=== PATIENT | male | born 1935 | race American Indian/Alaskan Native ===

== ENCOUNTER 2017-03-13 07:32 | Day surgery (SDC) | payer MEDICARE ==
[2017-03-13] MEDS ORDERED: NACL 0.45% 1000 ML 1,000 ML IV SCH (09:00)
[2017-03-13 09:25] LABS: White Blood Count 2.5 K/mm3 (4.5-11.0)
[2017-03-13 09:26] LABS: Hematocrit 38.9 % (35.5-45.6); Hemoglobin 12.9 gm/dl (11.8-15.2); Mean Corpuscular HGB Conc 33 % (32-34); Mean Corpuscular Hemoglobin 33 pg (28-32); Mean Corpuscular Volume 99 fl (84-94); Red Blood Count 3.93 M/mm3 (3.65-5.03); Red Cell Distribution Width 15.3 % (13.2-15.2)
[2017-03-13 09:29] LABS: Platelet Count 55 K/mm3 (140-440)
[2017-03-13 09:36] LABS: INR 1.25 (0.87-1.13)
[2017-03-13 09:37] LABS: Partial Thromboplastin Time 38.1 Sec. (24.2-36.6)
[2017-03-13] MEDS ORDERED: NACL 0.9% 1,000 ML, VANCOMYCIN VIAL 1,000 MG IR ONE (10:00)
[2017-03-13 10:09] LABS: Anisocytosis 1+; Blastocytes % (Manual) 0 %; Elliptocytes 1+; Helmet Cells Few; Ovalocytes 1+; Target Cells Rare
[2017-03-13 10:10] LABS: Acanthocytes Few; Diff Status Complete; Platelet Estimate Appears Decreased; Polychromasia Rare
[2017-03-13 10:17] LABS: Calcium 9.2 mg/dL (8.4-10.2); Chloride 98.6 mmol/L (98-107)
[2017-03-13 11:01] LABS: Potassium 5.3 mmol/L (3.6-5.0)
[2017-03-13] MEDS ORDERED: D50W (25GM) Syringe IV ONE (12:00)
[2017-03-13] MEDS ORDERED: XYLOCAINE 1% 20 mL ONE (13:14)
[2017-03-13] MEDS ORDERED: NACL 0.9% 500 ML IR ONE ×2 (13:14→14:41)
[2017-03-13] MEDS ORDERED: ANCEF/STERILE WATER 2 GM/20 ML 2 GM/20 ML SYRINGE IV ONE (13:14)
[2017-03-13] MEDS ORDERED: MARCAINE 0.5% 60 ML INFILTRATI ONE (13:14)
[2017-03-13] MEDS ORDERED: VERSED ONE ×2 (13:16→14:32)
[2017-03-13] MEDS ORDERED: SUBLIMAZE ONE ×2 (13:16→14:32)
[2017-03-13 16:37] VITALS: BP 121/61
== END 2017-03-13 17:00 | disposition home or self-care (01) ==
LOC: CATHLABREC 07:32
PROVIDERS: ATTEND Internal Medicine Cardiovascular Disease
DX: Z45.02 Encounter for adjustment and management of automatic implantable cardiac defibrillator (principal); I13.2 Hypertensive heart and chronic kidney disease with heart failure and with stage 5 chronic kidney disease, or end stage renal disease; I50.22 Chronic systolic (congestive) heart failure; I42.9 Cardiomyopathy, unspecified; I34.0 Nonrheumatic mitral (valve) insufficiency; N18.6 End stage renal disease; E78.5 Hyperlipidemia, unspecified; Z86.73 Personal history of transient ischemic attack (TIA), and cerebral infarction without residual deficits; Z99.2 Dependence on renal dialysis
CPT/HCPCS: 33262; 36415; 80048; 82962; 84132; 85007; 85025; 85610; 85730; 93005; 93010; 96374; C1722; J0690; J2250; J3010; J3370

== ENCOUNTER 2017-04-14 08:52 | Emergency (ER) | payer MEDICARE ==
[2017-04-14 10:40] LABS: Hematocrit 36.7 % (35.5-45.6); Hemoglobin 11.9 gm/dl (11.8-15.2); Mean Corpuscular HGB Conc 33 % (32-34); Mean Corpuscular Hemoglobin 33 pg (28-32); Mean Corpuscular Volume 101 fl (84-94); Red Blood Count 3.64 M/mm3 (3.65-5.03); Red Cell Distribution Width 16.8 % (13.2-15.2); White Blood Count 3.2 K/mm3 (4.5-11.0)
[2017-04-14 10:42] LABS: Platelet Count 58 K/mm3 (140-440)
[2017-04-14 10:51] LABS: Albumin 3.4 g/dL (3.9-5); Albumin/Globulin Ratio 1.1 %; Alkaline Phosphatase 61 units/L (35-129); Anion Gap 21 mmol/L; BUN/Creatinine Ratio 4; Blood Urea Nitrogen 24 mg/dL (9-20); Calcium 8.9 mg/dL (8.4-10.2); Carbon Dioxide 24 mmol/L (22-30); Glucose 89 mg/dL (75-100); Lipase 13 units/L (13-60); Sodium 142 mmol/L (137-145); Total Protein 6.4 g/dL (6.3-8.2)
[2017-04-14 10:58] LABS: Alanine Aminotransferase < 5 units/L (7-56)
[2017-04-14 11:12] LABS: Creatine Kinase MB 2.3 ng/mL (0.0-4.0)
--- NOTE | 2017-04-14 11:14 | Emergency Department Report ---
ED General Adult HPI - General Chief complaint: Weakness Stated complaint: DIZZY Time Seen by Provider: 04/14/17 10:24 Source: patient, EMS Mode of arrival: Stretcher Limitations: Physical Limitation - History of Present Illness Initial comments: Patient is an 81-year-old male past medical history of hypertension and end- stage renal disease. Who presents with hypotension. Patient is a dialysis patient and he gets dialysis Friday. While he was getting dialysis they noticed that he was hypotensive and because of that he was sent to the emergency department. Patient is not having any confusion or having any chest or abdominal pain. He states that he had some of his dialysis treatment but he hasn't had all of it. Patient states he is feeling fine now. No fevers or chills Severity scale (0 -10): 0 - Related Data Home Medications Medication Instructions Recorded Confirmed Last Taken Clopidogrel [Plavix] 75 mg PO QDAY 02/25/13 03/13/17 03/10/17 75mg Vit B Comp No.3/Folic/C/Biotin 1 tab PO DAILY 02/25/13 03/13/17 03/12/17 [[facility] Rx Tablet] 1 tab Amiodarone 200 mg PO DAILY 10/03/14 03/13/17 03/12/17 200mg Flomax 1 tab PO DAILY 10/03/14 03/13/17 03/12/17 Lipitor 10 mg PO DAILY 03/13/17 03/13/17 03/12/17 10mg Loratadine [Loratadine] 10 mg PO DAILY PRN 03/13/17 03/13/17 Unknown Ondansetron [Zofran TAB] 4 mg PO Q8H PRN 03/13/17 03/13/17 Unknown Ranitidine HCl [Zantac 150 MG TAB] 150 mg PO DAILY PRN 03/13/17 03/13/17 Unknown Previous Rx's Medication Instructions Recorded Last Taken Type Carvedilol [Coreg] 3.125 mg PO BID #60 tablet 10/15/14 03/12/17 Rx 3.125mg Acetaminophen [Acetaminophen TAB] 650 mg PO Q4H PRN #30 tablet 06/10/15 Unknown Rx guaiFENesin [Robitussin] 200 mg PO Q6H PRN #8 oz 06/10/15 Unknown Rx Cephalexin [Keflex] 500 mg PO Q12HR #16 cap 03/13/17 Unknown Rx Allergies Allergy/AdvReac Type Severity Reaction Status Date / Time No Known Allergies Allergy Verified 02/25/13 07:35 ED Review of Systems ROS: Stated complaint: DIZZY Other details as noted in HPI Constitutional: denies: chills, fever Eyes: denies: eye pain, eye discharge, vision change ENT: denies: ear pain, throat pain Respiratory: denies: cough, shortness of breath, wheezing Cardiovascular: denies: chest pain, palpitations Endocrine: no symptoms reported Gastrointestinal: denies: abdominal pain, nausea, diarrhea Genitourinary: denies: urgency, dysuria Musculoskeletal: denies: back pain, joint swelling, arthralgia Skin: denies: rash, lesions Neurological: denies: headache, weakness, paresthesias Psychiatric: denies: anxiety, depression Hematological/Lymphatic: denies: easy bleeding, easy bruising ED Past Medical Hx - Past Medical History Hx Hypertension: Yes Hx Heart Attack/AMI: Yes Hx Congestive Heart Failure: Yes Hx Diabetes: Yes (NO MEDS) Hx Renal Disease: Yes (ESRD w/ HD M,W,F) Hx Asthma: No Hx HIV: No - Surgical History Hx Internal Defibrillator: Yes Hx Appendectomy: Yes Additional Surgical History: defib placement - Social History Smoking Status: Never Smoker Substance Use Type: None - Medications Home Medications: Home Medications Medication Instructions Recorded Confirmed Last Taken Type Clopidogrel [Plavix] 75 mg PO QDAY 02/25/13 03/13/17 03/10/17 History 75mg Vit B Comp No.3/Folic/C/Biotin 1 tab PO DAILY 02/25/13 03/13/17 03/12/17 History [[facility] Rx Tablet] 1 tab Amiodarone 200 mg PO DAILY 10/03/14 03/13/17 03/12/17 History 200mg Flomax 1 tab PO DAILY 10/03/14 03/13/17 03/12/17 History Carvedilol [Coreg] 3.125 mg PO BID #60 tablet 10/15/14 03/13/17 03/12/17 Rx 3.125mg Acetaminophen [Acetaminophen TAB] 650 mg PO Q4H PRN #30 tablet 06/10/15 Unknown Rx guaiFENesin [Robitussin] 200 mg PO Q6H PRN #8 oz 01/16/16 10/19/17 Unknown Rx Cephalexin [Keflex] 500 mg PO Q12HR #16 cap 03/13/17 Unknown Rx Lipitor 10 mg PO DAILY 03/13/17 03/13/17 03/12/17 History 10mg Loratadine [Loratadine] 10 mg PO DAILY PRN 03/13/17 03/13/17 Unknown History Ondansetron [Zofran TAB] 4 mg PO Q8H PRN 03/13/17 03/13/17 Unknown History Ranitidine HCl [Zantac 150 MG TAB] 150 mg PO DAILY PRN 03/13/17 03/13/17 Unknown History ED Physical Exam - General Limitations: Physical Limitation General appearance: alert, in no apparent distress - Head Head exam: Present: atraumatic, normocephalic - Eye Eye exam: Present: normal appearance - ENT ENT exam: Present: mucous membranes moist - Neck Neck exam: Present: normal inspection - Respiratory Respiratory exam: Present: normal lung sounds bilaterally. Absent: respiratory distress - Cardiovascular Cardiovascular Exam: Present: regular rate, normal rhythm. Absent: systolic murmur, diastolic murmur, rubs, gallop - GI/Abdominal GI/Abdominal exam: Present: soft, normal bowel sounds - Rectal Rectal exam: Present: deferred - Extremities Exam Extremities exam: Present: other (right AV fistula palpable thrill) - Back Exam Back exam: Present: normal inspection - Neurological Exam Neurological exam: Present: alert, oriented X3 - Psychiatric Psychiatric exam: Present: normal affect, normal mood - Skin Skin exam: Present: warm, dry, intact, normal color. Absent: rash ED Course Vital Signs 04/14/17 04/14/17 04/14/17 09:04 09:17 09:30 Temperature 98.1 F Pulse Rate 92 H Respiratory 16 Rate Blood Pressure 115/67 114/55 107/52 Blood Pressure 115/67 [Left] O2 Sat by Pulse 100 100 Oximetry 04/14/17 04/14/17 04/14/17 09:48 10:00 10:47 Temperature Pulse Rate Respiratory 16 Rate Blood Pressure 107/52 107/52 Blood Pressure [Left] O2 Sat by Pulse 100 100 100 Oximetry 04/14/17 04/14/17 04/14/17 11:00 11:30 12:00 Temperature Pulse Rate Respiratory Rate Blood Pressure 114/65 114/65 115/67 Blood Pressure [Left] O2 Sat by Pulse 100 100 97 Oximetry ED Medical Decision Making - Lab Data Result diagrams: 04/14/17 10:23 04/14/17 10:18 Lab Results 04/14/17 04/14/17 04/14/17 Range/Units 10:18 10:23 10:23 WBC 3.2 L (4.5-11.0) K/mm3 RBC 3.64 L (3.65-5.03) M/mm3 Hgb 11.9 (11.8-15.2) gm/dl Hct 36.7 (35.5-45.6) % MCV 101 H (84-94) fl MCH 33 H (28-32) pg MCHC 33 (32-34) % RDW 16.8 H (13.2-15.2) % Plt Count 58 L (140-440) K/mm3 Upson % (Auto) Cleaning Manager Add Manual Diff Complete Total Counted 100 Seg Neuts % (Manual) 65.0 (40.0-70.0) % Band Neutrophils % 0 % Lymphocytes % (Manual) 18.0 (13.4-35.0) % Reactive Lymphs % (Man) 0 % Monocytes % (Manual) 14.0 H (0.0-7.3) % Eosinophils % (Manual) 2.0 (0.0-4.3) % Basophils % (Manual) 1.0 (0.0-1.8) % Metamyelocytes % 0 % Myelocytes % 0 % Promyelocytes % 0 % Blast Cells % 0 % Nucleated RBC % Not Reportable Seg Neutrophils # Man 2.1 (1.8-7.7) K/mm3 Band Neutrophils # 0.0 K/mm3 Lymphocytes # (Manual) 0.6 L (1.2-5.4) K/mm3 Abs React Lymphs (Man) 0.0 K/mm3 Monocytes # (Manual) 0.4 (0.0-0.8) K/mm3 Eosinophils # (Manual) 0.1 (0.0-0.4) K/mm3 Basophils # (Manual) 0.0 (0.0-0.1) K/mm3 Metamyelocytes # 0.0 K/mm3 Myelocytes # 0.0 K/mm3 Promyelocytes # 0.0 K/mm3 Blast Cells # 0.0 K/mm3 WBC Morphology Not Reportable Hypersegmented Neuts Not Reportable Hyposegmented Neuts Not Reportable Hypogranular Neuts Not Reportable Smudge Cells Not Reportable Toxic Granulation Not Reportable Toxic Vacuolation Not Reportable Dohle Bodies Not Reportable Pelger-Huet Anomaly Not Reportable Shaw Rods Not Reportable Platelet Estimate Cons Clumped Platelets Not Reportable Plt Clumps, EDTA Not Reportable Large Platelets Not Reportable Giant Platelets Not Reportable Platelet Satelliting Not Reportable Plt Morphology Comment Not Reportable RBC Morphology Not Reportable Dimorphic RBCs Not Reportable Polychromasia Not Reportable Hypochromasia Not Reportable Poikilocytosis 1+ Anisocytosis 1+ Microcytosis Not Reportable Macrocytosis Not Reportable Spherocytes Not Reportable Pappenheimer Bodies Not Reportable Sickle Cells Not Reportable Target Cells Not Reportable Tear Drop Cells Not Reportable Ovalocytes Few Helmet Cells Not Reportable [place] Bodies Not Reportable [place] Rings Not Reportable Simba Cells Not Reportable Bite Cells Not Reportable Crenated Cell Not Reportable Elliptocytes Few Acanthocytes (Spur) Few Rouleaux Not Reportable Hemoglobin C Crystals Not Reportable Schistocytes Rare Malaria parasites Not Reportable Shimon Bodies Not Reportable Hem Pathologist Commnt No Sodium 142 (137-145) mmol/L Potassium 4.0 (3.6-5.0) mmol/L Chloride 101.0 (98-107) mmol/L Carbon Dioxide 24 (22-30) mmol/L Anion Gap 21 mmol/L BUN 24 H (9-20) mg/dL Creatinine 6.7 H (0.8-1.5) mg/dL Estimated GFR 10 ml/min BUN/Creatinine Ratio 4 % Glucose 89 (75-100) mg/dL Calcium 8.9 (8.4-10.2) mg/dL Total Bilirubin 1.00 (0.1-1.2) mg/dL AST 6 (5-40) units/L ALT < 5 L (7-56) units/L Alkaline Phosphatase 61 (35-129) units/L Total Creatine Kinase 44 L (55-170) units/L CK-MB (CK-2) 2.3 (0.0-4.0) ng/mL CK-MB (CK-2) Rel Index 5.2 H (0-4) Troponin T 0.232 H* (0.00-0.029) ng/mL Total Protein 6.4 (6.3-8.2) g/dL Albumin 3.4 L (3.9-5) g/dL Albumin/Globulin Ratio 1.1 % Triglycerides 65 (2-149) mg/dL Cholesterol 108 (50-199) mg/dL LDL Cholesterol Direct 56 (50-130) mg/dL HDL Cholesterol 39 L (40-59) mg/dL Cholesterol/HDL Ratio 2.76 % Lipase 13 (13-60) units/L - EKG Data -: EKG Interpreted by Me - EKG Data 04/14/17 13:17 EKG shows sinus rhythm left bundle branch block normal axis. No T wave inversion - Medical Decision Making Chief medical diagnosis: Hypotension secondary to hemodialysis Differential medical diagnosis: Hyperkalemia, hypoglycemia I will get EKG, CBC, troponin, CMP and we'll reassess Patient's blood work shows elevated troponin however within looking at his history patient has always had an elevated troponin since he had end-stage renal disease on dialysis. His troponin today is 0.2-2 which is lower than his usual which is 0.4-0.6. The patient and patient's that patient has been asymptomatic in the day and has had a normotensive blood pressure. He can go back to dialysis. Patient agrees with plan additional verbal discharge instructions were given. Critical care attestation.: If time is entered above; I have spent that time in minutes in the direct care of this critically ill patient, excluding procedure time. ED Disposition Clinical Impression: Dialysis complication Qualifiers: Encounter type: initial encounter Qualified Code(s): T82.9XXA - Unspecified complication of cardiac and vascular prosthetic device, implant and graft, initial encounter Hypotension Qualifiers: Hypotension type: hemodialysis-associated hypotension Qualified Code(s): I95.3 - Hypotension of hemodialysis Disposition: DC-01 TO HOME OR SELFCARE Is pt being admited?: No Does the pt Need Aspirin: No Condition: Stable Instructions: Hemodialysis (ED), Hypotension (ED) Referrals: MARRY PACE MD [Staff Physician] - 3-5 Days
[2017-04-14 11:20] LABS: Blastocytes % (Manual) 0 %
[2017-04-14 11:21] LABS: Acanthocytes Few; Anisocytosis 1+; Poikilocytosis 1+
[2017-04-14 11:22] LABS: Diff Status Complete; Elliptocytes Few; Ovalocytes Few; Platelet Estimate Cons; Schistocytes Rare
[2017-04-14 12:26] VITALS: BP 115/67
== END 2017-04-14 14:11 | disposition home or self-care (01) ==
LOC: ED 08:52
DX: I95.3 Hypotension of hemodialysis (principal); T82.9XXA Unspecified complication of cardiac and vascular prosthetic device, implant and graft, initial encounter; E11.22 Type 2 diabetes mellitus with diabetic chronic kidney disease; I12.0 Hypertensive chronic kidney disease with stage 5 chronic kidney disease or end stage renal disease; N18.6 End stage renal disease; I50.9 Heart failure, unspecified
CPT/HCPCS: 36415; 80053; 80061; 82550; 82553; 83690; 84484; 85007; 85025; 93005; 93010; 99284